=== PATIENT | male | born 1950 | race Caucasian/White ===

== ENCOUNTER 2021-06-05 18:30 | Inpatient (IN) | payer MEDICARE ==
[~2021-06-05] VITALS: Ht 180.3 cm; Wt 147.5 kg
[~2021-06-05 18:30] MED LIST: ALLO100T OR; AMLO-489 OR; ASPI-247 GT; BENA20TA14 OR; FURO20TA3 PO; LEVO-28 PO; LEVO150T10 OR; METO-159 OR; POT10T PO
[2021-06-05 20:28] LABS: Basophils # (auto) 0.1 10 ^3/uL (0-0.2); Basophils % (auto) 0.9 % (0.0-2.0); Eosinophils # (auto) 0.2 10 ^3/uL (0-0.8); Eosinophils % (auto) 1.5 % (0.0-7.0); Hemoglobin 16.2 g/dL (13.5-17.5); Lymphocytes # (auto) 2.3 10 ^3/uL (0.4-5.4); Monocytes # (auto) 1.4 10 ^3/uL (0-1.3); Monocytes % (auto) 11.3 % (0.0-12.0); Neutrophils # (auto) 8.6 10 ^3/uL (1.6-8.6); Neutrophils % (auto) 68.3 % (37.0-80.0); Nucleated Red Blood Cells % 0.1 %; Red Blood Cells 5.57 10^6/uL (4.5-5.90); Red Cell Distribution Width 14.1 % (11.8-14.3); White Blood Cell 12.6 10^3/uL (4.4-10.8)
[2021-06-05 23:40] LABS: INR 1.07 (0.9-1.15)
[2021-06-05 23:45] LABS: Alanine Aminotransferase 23 U/L (16-61); Albumin 2.8 g/dL (3.4-5.0); Anion Gap 9 (5-15); Aspartate Aminotransferase 12 U/L (15-37); BUN/Creatinine Ratio 22.3; Blood Urea Nitrogen 25 mg/dL (7-18); Calcium 8.6 mg/dL (8.5-10.1); Carbon Dioxide 22 mmol/L (21-32); Chloride 107 mmol/L (98-107); GFR African American 84 mL/min; GFR Non-African American 69 mL/min; Glucose 91 mg/dL (74-106); Magnesium 2.8 mg/dL (1.6-2.6); Potassium 3.7 mmol/L (3.5-5.1); Sodium 138 mmol/L (136-145)
[2021-06-05 23:47] LABS: Alkaline Phosphatase 63 U/L (45-117); Bilirubin, Total 0.9 mg/dL (0.2-1.0); Total Protein 7.1 g/dL (6.4-8.2)
[2021-06-06] MEDS ORDERED: ACETAMINOPHEN 325 MG TAB PO PRN
[2021-06-06] MEDS ORDERED: MORPHINE SULFATE INJECTION 2 MG/2 ML SYRG IV PRN
[2021-06-06] MEDS ORDERED: HYDROcodone-ACET 5/325MG TAB PO PRN
[2021-06-06] MEDS ORDERED: LORazepam 0.5 MG TAB PO PRN
[2021-06-06] MEDS ORDERED: VANCOMYCIN 1GM/250ML 250 ML IV ONE
[2021-06-06] MEDS ORDERED: ONDANSETRON HCL 4 MG/2 ML VIAL IV PRN
[2021-06-06] MEDS ORDERED: ALUM & MAG HYDROX-SIMETH LIQ(MAALOX) 30 ML PO PRN
[2021-06-06] MEDS ORDERED: DOCUSATE SOD 100 MG CAP PO PRN
[2021-06-06] MEDS ORDERED: TEMAZEPAM 15 MG CAP PO PRN
[2021-06-06] MEDS ORDERED: VANCOMYCIN PER PHARMACY 0 MG IV SCH
[2021-06-06] MEDS ORDERED: PIPERACILLIN-TAZOB 3.375GM 100 ML IV ONE
[2021-06-06] MEDS: SODIUM CHLORIDE 0.9% 1,000 ML IV SCH ×2 (02:34→16:40)
[2021-06-06 04:00] VITALS: BP 178/74
[2021-06-06 04:15] LABS: Basophils # (auto) 0.1 10 ^3/uL (0-0.2); Basophils % (auto) 0.9 % (0.0-2.0); Eosinophils # (auto) 0.2 10 ^3/uL (0-0.8); Eosinophils % (auto) 2.5 % (0.0-7.0); Hematocrit 43.5 % (41.0-53.0); Hemoglobin 14.8 g/dL (13.5-17.5); Lymphocytes # (auto) 2.5 10 ^3/uL (0.4-5.4); Lymphocytes % (auto) 25.2 % (10.0-50.0); Mean Corpuscular Hemoglobin 29.9 pg (28.0-32.0); Mean Corpuscular Hgb Conc. 34.1 g/dL (32.0-36.0); Mean Corpuscular Volume 87.7 fL (80.0-100.0); Monocytes # (auto) 1.1 10 ^3/uL (0-1.3); Monocytes % (auto) 10.8 % (0.0-12.0); Neutrophils # (auto) 5.9 10 ^3/uL (1.6-8.6); Neutrophils % (auto) 60.6 % (37.0-80.0); Nucleated Red Blood Cells % 0.1 %; Red Blood Cells 4.96 10^6/uL (4.5-5.90); Red Cell Distribution Width 13.9 % (11.8-14.3); White Blood Cell 9.8 10^3/uL (4.4-10.8)
[2021-06-06 04:36] LABS: Calcium 8.5 mg/dL (8.5-10.1); Potassium 3.8 mmol/L (3.5-5.1)
[2021-06-06 04:37] LABS: BUN/Creatinine Ratio 21.9
[2021-06-06 05:00] VITALS: BP 178/74
[2021-06-06] MEDS ORDERED: PIPERACILLIN-TAZOB 3.375GM 100 ML IV SCH (06:00)
[2021-06-06] MEDS: LEVOTHYROXINE SODIUM 50 MCG TAB PO SCH (08:00)
[2021-06-06] MEDS ORDERED: fentaNYL CITRATE 100 MCG/2 ML VL ONE (08:25)
[2021-06-06] MEDS ORDERED: ONDANSETRON HCL 4 MG/2 ML VIAL ONE (08:26)
[2021-06-06] MEDS ORDERED: PROPOFOL 10 MG/ML 20 ML IV ONE (08:26)
[2021-06-06] MEDS ORDERED: SODIUM CHLORIDE LOCK 10 ML ONE (08:26)
[2021-06-06] MEDS ORDERED: MIDAZOLAM HCL 2MG/2ML 2ml VIAL (1mg/ml) ONE (08:26)
[2021-06-06] MEDS ORDERED: KETAMINE HCL 10 ML ONE (08:26)
[2021-06-06] MEDS ORDERED: LIDOCAINE 2% (LOCAL ANESTH.) PF 5ml SDV ONE (08:27)
[2021-06-06] MEDS ORDERED: NEOMYCIN-BACITRACIN-POLYM 15GM TOP OINT TOP ONE (08:31)
[2021-06-06] MEDS ORDERED: ROPIVACAINE 0.5% (5MG/ML) 20ML AMPULE IJ ONE (08:31)
[2021-06-06] MEDS ORDERED: ceFAZolin 1GM/50ML 100 ML IV ONE (08:42)
[2021-06-06] MEDS: ceFAZolin 1GM VL ONE ×2 (08:52→09:43)
[2021-06-06 09:00] VITALS: BP 117/102
[2021-06-06] MEDS ORDERED: HYDROmorphone HCL 2 MG/ML VL IV PRN (09:15)
[2021-06-06] MEDS ORDERED: METOCLOPRAMIDE HCL 5MG/ml INJ 2ml VIAL IV PRN (09:15)
[2021-06-06] MEDS ORDERED: MORPHINE SULFATE 4 MG/ML SYR/VIAL IV PRN (09:15)
[2021-06-06] MEDS ORDERED: SILVER SULFADIAZINE 1 % TOPICAL CREAM 50GM TOP ONE (09:39)
[2021-06-06] MEDS: METOPROLOL TARTRATE 50 MG TAB PO SCH ×2 (10:00→22:26)
[2021-06-06] MEDS ORDERED: BENAZEPRIL HCL 10 MG TAB PO ONE (12:45)
[2021-06-06 13:00] VITALS: BP 161/80
[2021-06-06] MEDS: amLODIPine BESYLATE 5 MG TAB PO SCH (13:01)
[2021-06-06] MEDS: FUROSEMIDE 20 MG TAB PO SCH (13:02)
[2021-06-06] MEDS: VANCOMYCIN 1GM/250ML 250 ML IV SCH (14:18)
[2021-06-06] MEDS: PIPERACILLIN-TAZOB 3.375GM 100 ML IV SCH ×2 (15:30→22:27)
[2021-06-06 17:00] VITALS: BP 153/74
[2021-06-06 22:00] VITALS: BP 126/89
[2021-06-07] MEDS: VANCOMYCIN 1GM/250ML 250 ML IV SCH ×4 (03:53→18:43)
[2021-06-07 05:00] VITALS: BP 155/93
[2021-06-07 05:58] LABS: Basophils # (auto) 0.3 10 ^3/uL (0-0.2); Basophils % (auto) 3.4 % (0.0-2.0); Eosinophils # (auto) 0.3 10 ^3/uL (0-0.8); Hematocrit 46.3 % (41.0-53.0); Hemoglobin 15.7 g/dL (13.5-17.5); Lymphocytes # (auto) 1.1 10 ^3/uL (0.4-5.4); Lymphocytes % (auto) 13.5 % (10.0-50.0); Mean Corpuscular Hemoglobin 29.9 pg (28.0-32.0); Mean Corpuscular Hgb Conc. 33.9 g/dL (32.0-36.0); Mean Corpuscular Volume 88.2 fL (80.0-100.0); Monocytes # (auto) 0.6 10 ^3/uL (0-1.3); Monocytes % (auto) 7.4 % (0.0-12.0); Neutrophils # (auto) 5.8 10 ^3/uL (1.6-8.6); Neutrophils % (auto) 71.7 % (37.0-80.0); Nucleated Red Blood Cells % 0.1 %; Red Blood Cells 5.25 10^6/uL (4.5-5.90); Red Cell Distribution Width 13.8 % (11.8-14.3); White Blood Cell 8.1 10^3/uL (4.4-10.8)
[2021-06-07 06:19] LABS: Potassium 3.8 mmol/L (3.5-5.1)
[2021-06-07 06:23] LABS: BUN/Creatinine Ratio 19.4
[2021-06-07] MEDS: PIPERACILLIN-TAZOB 3.375GM 100 ML IV SCH ×3 (07:03→22:05)
[2021-06-07] MEDS: LEVOTHYROXINE SODIUM 50 MCG TAB PO SCH (08:17)
[2021-06-07 09:00] VITALS: BP 153/88
[2021-06-07] MEDS: FUROSEMIDE 20 MG TAB PO SCH (10:03)
[2021-06-07] MEDS: BENAZEPRIL HCL 10 MG TAB PO SCH (10:03)
[2021-06-07] MEDS: POTASSIUM CHL 10 Meq TABLET PO SCH (10:03)
[2021-06-07] MEDS: amLODIPine BESYLATE 5 MG TAB PO SCH (10:03)
[2021-06-07 13:00] VITALS: BP 160/91
[2021-06-07] MEDS: hydrALAZINE HCL 20 MG/ML VL IV PRN (14:28)
[2021-06-07 17:00] VITALS: BP 160/79
[2021-06-07] MEDS: BENAZEPRIL HCL 10 MG TAB PO ONE ×2 (17:27→17:47)
[2021-06-07 22:00] VITALS: BP 143/63
[2021-06-07] MEDS: METOPROLOL TARTRATE 25 MG TAB PO SCH (22:05)
[2021-06-08 05:00] VITALS: BP 179/80
[2021-06-08] MEDS: hydrALAZINE HCL 20 MG/ML VL IV PRN ×2 (05:27→12:54)
[2021-06-08 05:58] LABS: Urine WBC None Seen /hpf (0 - 3)
[2021-06-08 06:17] VITALS: BP 125/74
[2021-06-08 06:35] LABS: Urine Bacteria NONE SEEN /hpf (None Seen); Urine Blood Negative /uL (Negative); Urine Specific Gravity 1.004 (1.001-1.035)
[2021-06-08] MEDS: PIPERACILLIN-TAZOB 3.375GM 100 ML IV SCH ×2 (06:38→15:00)
[2021-06-08] MEDS: LEVOTHYROXINE SODIUM 50 MCG TAB PO SCH (08:11)
[2021-06-08] MEDS: VANCOMYCIN 1GM/250ML 250 ML IV SCH (08:11)
[2021-06-08] MEDS: BENAZEPRIL HCL 10 MG TAB PO SCH (08:13)
[2021-06-08] MEDS: FUROSEMIDE 20 MG TAB PO SCH (08:14)
[2021-06-08] MEDS: POTASSIUM CHL 10 Meq TABLET PO SCH (08:14)
[2021-06-08] MEDS: METOPROLOL TARTRATE 25 MG TAB PO SCH (08:14)
[2021-06-08 09:00] VITALS: BP 175/105
[2021-06-08] MEDS ORDERED: amLODIPine BESYLATE 5 MG TAB PO SCH (10:00)
[2021-06-08] MEDS ORDERED: SILVER SULFADIAZINE 1 % TOPICAL CREAM 50GM TOP SCH (10:00)
[2021-06-08 13:00] VITALS: BP 162/94
== END 2021-06-08 17:00 | disposition home or self-care (01) | DRG 854 ==
LOC: ER 18:31 → OVERFLOW 06-06 → CENTRAL 06-06 04:30
PROVIDERS: ADMIT Hospitalist; ATTEND Internal Medicine
PROC: 0JBR0ZZ Excision of Left Foot Subcutaneous Tissue and Fascia, Open Approach (ICD-10-PCS; principal; 2021-06-06 11:30)
DX: A41.01 Sepsis due to Methicillin susceptible Staphylococcus aureus (principal); L03.116 Cellulitis of left lower limb; Z68.41 Body mass index [BMI] 40.0-44.9, adult; M10.9 Gout, unspecified; I48.91 Unspecified atrial fibrillation; I10 Essential (primary) hypertension; E03.9 Hypothyroidism, unspecified; G62.9 Polyneuropathy, unspecified; L97.529 Non-pressure chronic ulcer of other part of left foot with unspecified severity; E66.01 Morbid (severe) obesity due to excess calories; Z20.822 Contact with and (suspected) exposure to COVID-19; Z89.431 Acquired absence of right foot
CPT/HCPCS: 36415; 71045; 80048; 80053; 80061; 80202; 81001; 83036; 83605; 83735; 84443; 85025; 85610; 85652; 87040; 87070; 87075; 87077; 87186; 87205; 87426; 93971; 96365; 96367; G0378; J0690; J2001; J2250; J2405; J2543; J2704

== ENCOUNTER → 2022-01-23 | Day surgery (SDC) | payer MEDICARE ==
[2022-01-21 11:10] LABS: Basophils # (auto) 0.1 10 ^3/uL (0-0.2); Basophils % (auto) 1.3 % (0.0-2.0); Eosinophils # (auto) 0.2 10 ^3/uL (0-0.8); Eosinophils % (auto) 1.7 % (0.0-7.0); Hematocrit 50.8 % (41.0-53.0); Hemoglobin 16.9 g/dL (13.5-17.5); Lymphocytes # (auto) 2.3 10 ^3/uL (0.4-5.4); Lymphocytes % (auto) 23.9 % (10.0-50.0); Mean Corpuscular Hemoglobin 28.9 pg (28.0-32.0); Mean Corpuscular Hgb Conc. 33.3 g/dL (32.0-36.0); Mean Corpuscular Volume 86.6 fL (80.0-100.0); Monocytes # (auto) 0.9 10 ^3/uL (0-1.3); Monocytes % (auto) 9.6 % (0.0-12.0); Neutrophils % (auto) 63.5 % (37.0-80.0); Nucleated Red Blood Cells % 1.6 %; Red Blood Cells 5.87 10^6/uL (4.5-5.90); White Blood Cell 9.5 10^3/uL (4.4-10.8)
[2022-01-21 11:37] LABS: INR 1.05 (0.9-1.15); Partial Thromboplastin Time 26.6 sec (23.6-33.0)
[2022-01-21 12:03] LABS: Potassium 4.5 mmol/L (3.5-5.1)
[2022-01-21 12:07] LABS: Urine Bacteria NONE SEEN /hpf (None Seen); Urine Blood Negative /uL (Negative); Urine Mucus FEW (None Seen); Urine Specific Gravity 1.016 (1.001-1.035); Urine WBC 1 /hpf (0 - 3)
[2022-01-21 12:09] LABS: Albumin 3.5 g/dL (3.4-5.0); BUN/Creatinine Ratio 22.1; Calcium 8.9 mg/dL (8.5-10.1)
[2022-01-21 12:11] LABS: Bilirubin, Total 0.9 mg/dL (0.2-1.0); Total Protein 7.3 g/dL (6.4-8.2)
[~2022-01-23] VITALS: Ht 180.3 cm; Wt 145.1 kg
[~2022-01-23] MED LIST changes: -AMLO-489 OR; -ASPI-247 GT; +ATOR10TA PO; -BENA20TA14 OR; +BENA40TA8 PO; +DexAMETHasone SOD PHOS 10MG/1ML VIAL INJ ONE; +HYDROmorphone HCL 2 MG/ML VL IV PRN; +LABETALOL HCL 5 MG/ML 4ML SYRINGE IV PRN; -LEVO-28 PO; -LEVO150T10 OR; +LEVO175T62 PO; +MEPERIDINE HCL (50 MG/ML) 1 ML VIAL ONE; +MIDAZOLAM HCL 2MG/2ML 2ml VIAL (1mg/ml) IV PRN; +MIDAZOLAM HCL 2MG/2ML 2ml VIAL (1mg/ml) ONE; +MORPHINE SULFATE 4 MG/ML SYR/VIAL IV PRN; +NEOMYCIN-BACITRACIN-POLYM 15GM TOP OINT TOP ONE; +ONDANSETRON HCL 4 MG/2 ML VIAL IV PRN; +PROPOFOL 10 MG/ML 20 ML IV ONE; +ROPIVACAINE 0.5% (5MG/ML) 20ML AMPULE IJ ONE; +SUCCINYLCHOLINE CHLORIDE 20 MG/ML 10ML VIAL IV ONE; +ceFAZolin 1GM VL ONE; +ceFAZolin 1GM/50ML 150 ML IV ONE; +ePHEDrine SULFATE 50 MG/ML AMP IV PRN; +fentaNYL CITRATE 100 MCG/2 ML VL ONE
[2022-01-23 09:27] VITALS: BP 151/77
== END | disposition home or self-care (01) ==
LOC: SUR 06:12
PROVIDERS: ATTEND Podiatrist Foot & Ankle Surgery
DX: E11.621 Type 2 diabetes mellitus with foot ulcer (principal); L90.5 Scar conditions and fibrosis of skin; M19.071 Primary osteoarthritis, right ankle and foot; M20.5X1 Other deformities of toe(s) (acquired), right foot; L91.0 Hypertrophic scar; I10 Essential (primary) hypertension; E78.5 Hyperlipidemia, unspecified; E11.40 Type 2 diabetes mellitus with diabetic neuropathy, unspecified; M10.9 Gout, unspecified; I48.91 Unspecified atrial fibrillation; G47.33 Obstructive sleep apnea (adult) (pediatric); E66.01 Morbid (severe) obesity due to excess calories; E03.9 Hypothyroidism, unspecified; Z82.49 Family history of ischemic heart disease and other diseases of the circulatory system; Z83.42 Family history of familial hypercholesterolemia; Z80.1 Family history of malignant neoplasm of trachea, bronchus and lung; Z80.0 Family history of malignant neoplasm of digestive organs; Z20.822 Contact with and (suspected) exposure to COVID-19; Z98.890 Other specified postprocedural states; Z79.899 Other long term (current) drug therapy; Z68.41 Body mass index [BMI] 40.0-44.9, adult
CPT/HCPCS: 14040; 28232; 28292; 36415; 80053; 81001; 85025; 85610; 85730; 88305; 88311; J0330; J0690; J1100; J2175; J2250; J2704; J2795; J3010; U0003

== ENCOUNTER 2023-03-19 06:22 | Day surgery (SDC) | payer MEDICARE ==
[2023-03-13 13:34] LABS: Basophils # (auto) 0 10 ^3/uL (0-0.2); Basophils % (auto) 0.4 % (0.0-2.0); Eosinophils # (auto) 0.1 10 ^3/uL (0-0.8); Eosinophils % (auto) 1.4 % (0.0-7.0); Hemoglobin 17.9 g/dL (13.5-17.5); Lymphocytes # (auto) 2.2 10 ^3/uL (0.4-5.4); Lymphocytes % (auto) 19.9 % (10.0-50.0); Mean Corpuscular Hemoglobin 29.1 pg (28.0-32.0); Mean Corpuscular Hgb Conc. 33.2 g/dL (32.0-36.0); Mean Corpuscular Volume 87.8 fL (80.0-100.0); Monocytes % (auto) 8.9 % (0.0-12.0); Neutrophils # (auto) 7.6 10 ^3/uL (1.6-8.6); Neutrophils % (auto) 69.4 % (37.0-80.0); Nucleated Red Blood Cells % 0.1 %; Red Blood Cells 6.15 10^6/uL (4.5-5.90); Red Cell Distribution Width 14.5 % (11.8-14.3); White Blood Cell 10.9 10^3/uL (4.4-10.8)
[2023-03-13 14:10] LABS: Albumin 3.6 g/dL (3.4-5.0); Calcium 8.8 mg/dL (8.5-10.1); Potassium 4.1 mmol/L (3.5-5.1)
[2023-03-13 14:14] LABS: BUN/Creatinine Ratio 18.1 (10.0-20.0); Bilirubin, Total 1.6 mg/dL (0.2-1.0); Total Protein 7.5 g/dL (6.4-8.2)
[2023-03-14 05:56] LABS: Urine Bacteria NONE SEEN /hpf (None Seen); Urine Blood Negative /uL (Negative); Urine Hyaline Cast MANY /lpf (0 - 2); Urine Mucus FEW (None Seen); Urine Specific Gravity 1.018 (1.001-1.035); Urine WBC 2 /hpf (0 - 3)
[~2023-03-19] VITALS: Ht 180.3 cm; Wt 145.1 kg
[~2023-03-19 06:22] MED LIST changes: +AMLO1TAB23 PO; +BENA40TA70 PO; -BENA40TA8 PO; -DexAMETHasone SOD PHOS 10MG/1ML VIAL INJ ONE; -HYDROmorphone HCL 2 MG/ML VL IV PRN; -LABETALOL HCL 5 MG/ML 4ML SYRINGE IV PRN; -MEPERIDINE HCL (50 MG/ML) 1 ML VIAL ONE; -MIDAZOLAM HCL 2MG/2ML 2ml VIAL (1mg/ml) IV PRN; -MIDAZOLAM HCL 2MG/2ML 2ml VIAL (1mg/ml) ONE; -MORPHINE SULFATE 4 MG/ML SYR/VIAL IV PRN; -NEOMYCIN-BACITRACIN-POLYM 15GM TOP OINT TOP ONE; -ONDANSETRON HCL 4 MG/2 ML VIAL IV PRN; -PROPOFOL 10 MG/ML 20 ML IV ONE; -ROPIVACAINE 0.5% (5MG/ML) 20ML AMPULE IJ ONE; -SUCCINYLCHOLINE CHLORIDE 20 MG/ML 10ML VIAL IV ONE; +SULF1TAB75 PO; -ceFAZolin 1GM VL ONE; -ceFAZolin 1GM/50ML 150 ML IV ONE; -ePHEDrine SULFATE 50 MG/ML AMP IV PRN; -fentaNYL CITRATE 100 MCG/2 ML VL ONE
[2023-03-19] MEDS ORDERED: ROPIVACAINE 0.5% (5MG/ML) 20ML AMPULE IJ ONE (06:46)
[2023-03-19] MEDS ORDERED: ceFAZolin 1GM/50ML 100 ML IV ONE (07:00)
[2023-03-19] MEDS ORDERED: fentaNYL CITRATE 100 MCG/2 ML VL ONE (07:05)
[2023-03-19] MEDS ORDERED: SODIUM CHLORIDE LOCK 10 ML ONE (07:05)
[2023-03-19] MEDS ORDERED: PROPOFOL 10 MG/ML 20 ML IV ONE (07:05)
[2023-03-19] MEDS ORDERED: MIDAZOLAM HCL 2MG/2ML 2ml VIAL (1mg/ml) ONE (07:05)
[2023-03-19] MEDS ORDERED: ONDANSETRON HCL 4 MG/2 ML VIAL ONE (07:05)
[2023-03-19] MEDS ORDERED: MORPHINE SULFATE INJ 2 MG/ml SYRG IV PRN (07:30)
[2023-03-19] MEDS ORDERED: HYDROmorphone HCL 2 MG/ML VL/or syr IV PRN ×2 (07:30)
[2023-03-19] MEDS ORDERED: METOCLOPRAMIDE HCL 5MG/ml INJ 2ml VIAL IV PRN (07:30)
[2023-03-19] MEDS ORDERED: BACITRACIN TOP OINT 1 UD PKG TOP ONE (08:01)
[2023-03-19 08:58] VITALS: BP 120/80
== END 2023-03-19 09:03 | disposition home or self-care (01) ==
LOC: SUR 06:22
PROVIDERS: ATTEND Podiatrist Foot & Ankle Surgery
DX: M21.962 Unspecified acquired deformity of left lower leg (principal); L89.893 Pressure ulcer of other site, stage 3; M79.672 Pain in left foot; E11.8 Type 2 diabetes mellitus with unspecified complications; M62.472 Contracture of muscle, left ankle and foot; M89.9 Disorder of bone, unspecified
CPT/HCPCS: 28124; 28232; 36415; 80053; 81001; 85025; 85610; 85730; 88305; 88311; J0690; J2250; J2405; J2704; J2795; J3010

== ENCOUNTER 2023-05-20 18:51 | Inpatient (IN) | payer MEDICARE ==
[~2023-05-20] VITALS: Ht 180.3 cm; Wt 154.6 kg
[2023-05-20] MEDS ORDERED: VANCOMYCIN 1GM/250ML 250 ML IV ONE (20:15)
[2023-05-20 20:23] LABS: Basophils # (auto) 0.2 10 ^3/uL (0-0.2); Basophils % (auto) 1.4 % (0.0-2.0); Eosinophils # (auto) 0.1 10 ^3/uL (0-0.8); Hematocrit 50.3 % (41.0-53.0); Hemoglobin 16.6 g/dL (13.5-17.5); Lymphocytes % (auto) 14.5 % (10.0-50.0); Mean Corpuscular Hemoglobin 29.3 pg (28.0-32.0); Mean Corpuscular Hgb Conc. 33.1 g/dL (32.0-36.0); Mean Corpuscular Volume 88.6 fL (80.0-100.0); Monocytes # (auto) 1.2 10 ^3/uL (0-1.3); Monocytes % (auto) 8.6 % (0.0-12.0); Neutrophils # (auto) 10.4 10 ^3/uL (1.6-8.6); Neutrophils % (auto) 74.5 % (37.0-80.0); Nucleated Red Blood Cells % 0.1 %; Red Blood Cells 5.67 10^6/uL (4.5-5.90); Red Cell Distribution Width 15.3 % (11.8-14.3); White Blood Cell 13.9 10^3/uL (4.4-10.8)
[2023-05-20 20:40] LABS: Albumin 3.4 g/dL (3.4-5.0); Potassium 3.9 mmol/L (3.5-5.1)
[2023-05-20 20:43] LABS: BUN/Creatinine Ratio 21.6 (10.0-20.0); Bilirubin, Total 0.8 mg/dL (0.2-1.0); Total Protein 7.4 g/dL (6.4-8.2)
[2023-05-20 21:51] LABS: Erythrocyte Sedimentation Rate 13 mm/hr (0-20)
[2023-05-20] MEDS ORDERED: HYDROcodone-ACET 5/325MG TAB PO PRN (23:15)
[2023-05-20] MEDS ORDERED: MORPHINE SULFATE INJ 2 MG/ml SYRG IV PRN (23:15)
[2023-05-20] MEDS ORDERED: ACETAMINOPHEN 325 MG TAB PO PRN (23:15)
[2023-05-20] MEDS: ceFAZolin 1GM/50ML 50 ML IV SCH (23:38)
[2023-05-21] VITALS (7 sets, daily range): BP systolic 130–150; BP diastolic 70–92; PULSE 62–95; RESP 16–22; TEMP 97.7–98.2; O2SAT 0–97
[2023-05-21] MEDS: ceFAZolin 1GM/50ML 50 ML IV SCH ×2 (06:11→15:18)
[2023-05-21] MEDS: LEVOTHYROXINE SODIUM 50 MCG TAB PO SCH (06:14)
[2023-05-21 06:45] LABS: Albumin 3.2 g/dL (3.4-5.0); Calcium 8.6 mg/dL (8.5-10.1); Potassium 3.3 mmol/L (3.5-5.1)
[2023-05-21 06:49] LABS: BUN/Creatinine Ratio 29.2 (10.0-20.0); Total Protein 6.7 g/dL (6.4-8.2)
[2023-05-21 06:56] LABS: INR 1.04 (0.9-1.15); Partial Thromboplastin Time 27.2 SEC (24.5-34.5); Prothrombin Time 10.9 sec (9.3-11.8)
[2023-05-21 06:58] LABS: Basophils # (auto) 0.1 10 ^3/uL (0-0.2); Basophils % (auto) 0.8 % (0.0-2.0); Eosinophils # (auto) 0.1 10 ^3/uL (0-0.8); Eosinophils % (auto) 1.1 % (0.0-7.0); Hematocrit 47.3 % (41.0-53.0); Hemoglobin 15.7 g/dL (13.5-17.5); Lymphocytes # (auto) 1.9 10 ^3/uL (0.4-5.4); Lymphocytes % (auto) 16.6 % (10.0-50.0); Mean Corpuscular Hemoglobin 29.2 pg (28.0-32.0); Mean Corpuscular Hgb Conc. 33.1 g/dL (32.0-36.0); Mean Corpuscular Volume 88.3 fL (80.0-100.0); Monocytes # (auto) 1.2 10 ^3/uL (0-1.3); Monocytes % (auto) 10.5 % (0.0-12.0); Red Blood Cells 5.36 10^6/uL (4.5-5.90); Red Cell Distribution Width 14.8 % (11.8-14.3); White Blood Cell 11.3 10^3/uL (4.4-10.8)
[2023-05-21] MEDS: BENAZEPRIL HCL 10 MG TAB PO SCH (10:00)
[2023-05-21] MEDS ORDERED: PANTOPRAZOLE 40 MG TAB PO SCH (10:00)
[2023-05-21] MEDS ORDERED: POTASSIUM CHL 10 Meq TABLET PO SCH (10:00)
[2023-05-21] MEDS: amLODIPine BESYLATE 5 MG TAB PO SCH (10:00)
[2023-05-21] MEDS: METOPROLOL TARTRATE 50 MG TAB PO SCH ×2 (10:00→21:58)
[2023-05-21] MEDS ORDERED: FUROSEMIDE 20 MG TAB PO SCH (10:00)
[2023-05-21] MEDS ORDERED: GADOTERATE MEG 10 MMOL/20ml INJ (0.5MMOL/ml) IV ONE (10:41)
[2023-05-21] MEDS ORDERED: POTASSIUM CHL 20 Meq TABLET PO ONE ×2 (10:45→14:15)
[2023-05-21 11:06] LABS: Cholesterol 117 mg/dL (< 200); Triglycerides 67 mg/dL (< 150)
[2023-05-21 11:08] LABS: HDL Cholesterol 42 mg/dL (40-59); LDL Cholesterol 62 mg/dL (< 100)
[2023-05-21] MEDS ORDERED: PROPOFOL 10 MG/ML 20 ML IV ONE (12:02)
[2023-05-21] MEDS ORDERED: KETOROLAC TROMETH 30 MG/ML 1ML VIAL ONE (12:03)
[2023-05-21] MEDS ORDERED: ONDANSETRON HCL 4 MG/2 ML VIAL ONE (12:03)
[2023-05-21] MEDS ORDERED: LIDOCAINE 2% (LOCAL ANESTH.) PF 5ml SDV ONE (12:03)
[2023-05-21] MEDS ORDERED: DexAMETHasone SOD PHOS 10MG/1ML VIAL INJ ONE (12:03)
[2023-05-21] MEDS ORDERED: GLYCOPYRROLATE 0.2 MG/ML 1ML VIAL ONE (12:03)
[2023-05-21] MEDS ORDERED: ceFAZolin 1GM/50ML 100 ML IV ONE (13:12)
[2023-05-21] MEDS ORDERED: ceFAZolin 1GM VL ONE ×2 (13:12→13:13)
[2023-05-21] MEDS ORDERED: VANCOMYCIN PER PHARMACY 0 MG IV SCH (16:15)
[2023-05-21] MEDS ORDERED: KETAMINE 50mg/ML 10ml Vial (500mg/10ml) IV ONE (16:31)
[2023-05-21] MEDS: VANCOMYCIN 1GM/250ML 250 ML IV SCH (18:20)
[2023-05-21] MEDS ORDERED: LIDOCAINE 1% (LOCAL ANESTH.) PF 5ml SDV ID ONE (19:30)
[2023-05-21] MEDS: CEFEPIME 1GM/ 50ML 50 ML IV SCH (21:57)
[2023-05-21] MEDS: ATORVASTATIN 20 MG TAB PO SCH (21:58)
[2023-05-21] MEDS: ALLOPURINOL 100 MG TAB PO SCH (21:58)
[2023-05-21] MEDS: SODIUM CHLOR 0.9% PF (SALINE LOCK) 10ML VIAL/SYR IV SCH (22:01)
[2023-05-22 05:00] VITALS: BP 120/72; PULSE 75; RESP 20; TEMP 98.5; O2SAT 92
[2023-05-22] MEDS: CEFEPIME 1GM/ 50ML 50 ML IV SCH ×3 (05:32→22:18)
[2023-05-22] MEDS: VANCOMYCIN 1GM/250ML 250 ML IV SCH ×2 (06:02→17:46)
[2023-05-22] MEDS: LEVOTHYROXINE SODIUM 50 MCG TAB PO SCH (06:07)
[2023-05-22 06:59] LABS: Basophils # (auto) 0 10 ^3/uL (0-0.2); Basophils % (auto) 0.2 % (0.0-2.0); Eosinophils # (auto) 0 10 ^3/uL (0-0.8); Hematocrit 47.6 % (41.0-53.0); Hemoglobin 15.6 g/dL (13.5-17.5); Lymphocytes # (auto) 0.9 10 ^3/uL (0.4-5.4); Lymphocytes % (auto) 8.4 % (10.0-50.0); Mean Corpuscular Hgb Conc. 32.7 g/dL (32.0-36.0); Mean Corpuscular Volume 88.6 fL (80.0-100.0); Monocytes # (auto) 0.3 10 ^3/uL (0-1.3); Monocytes % (auto) 2.5 % (0.0-12.0); Neutrophils % (auto) 88.9 % (37.0-80.0); Nucleated Red Blood Cells % 0.1 %; Red Blood Cells 5.37 10^6/uL (4.5-5.90); Red Cell Distribution Width 14.5 % (11.8-14.3); White Blood Cell 10.2 10^3/uL (4.4-10.8)
[2023-05-22 08:00] VITALS: BP 147/72; PULSE 74; RESP 20; TEMP 98.2; O2SAT 94
[2023-05-22 09:33] LABS: Calcium 8.6 mg/dL (8.5-10.1)
[2023-05-22 09:38] LABS: BUN/Creatinine Ratio 23.6 (10.0-20.0); Bilirubin, Total 0.7 mg/dL (0.2-1.0); Total Protein 6.6 g/dL (6.4-8.2)
[2023-05-22] MEDS: METOPROLOL TARTRATE 50 MG TAB PO SCH ×2 (10:21→22:19)
[2023-05-22] MEDS: BENAZEPRIL HCL 10 MG TAB PO SCH (10:21)
[2023-05-22] MEDS: amLODIPine BESYLATE 5 MG TAB PO SCH (10:22)
[2023-05-22] MEDS: SODIUM CHLOR 0.9% PF (SALINE LOCK) 10ML VIAL/SYR IV SCH ×2 (10:22→22:18)
[2023-05-22 12:00] VITALS: BP 138/72; PULSE 72; RESP 21; TEMP 98.4; O2SAT 91
[2023-05-22 16:00] VITALS: BP 147/61; PULSE 56; RESP 21; TEMP 98.6; O2SAT 95
[2023-05-22 20:00] VITALS: BP 152/96; PULSE 80; RESP 18; TEMP 98.4; O2SAT 95
[2023-05-22 22:00] VITALS: BP 152/96; PULSE 80; RESP 18; TEMP 98.4; O2SAT 95
[2023-05-22] MEDS: ALLOPURINOL 100 MG TAB PO SCH (22:18)
[2023-05-22] MEDS: ATORVASTATIN 20 MG TAB PO SCH (22:18)
[2023-05-23 05:00] VITALS: BP 141/82; PULSE 52; RESP 18; TEMP 97.6; O2SAT 94
[2023-05-23] MEDS: CEFEPIME 1GM/ 50ML 50 ML IV SCH (06:10)
[2023-05-23 06:37] LABS: Basophils # (auto) 0.3 10 ^3/uL (0-0.2); Basophils % (auto) 2.7 % (0.0-2.0); Eosinophils # (auto) 0.1 10 ^3/uL (0-0.8); Eosinophils % (auto) 0.5 % (0.0-7.0); Hematocrit 45.4 % (41.0-53.0); Hemoglobin 15.1 g/dL (13.5-17.5); Lymphocytes # (auto) 1.2 10 ^3/uL (0.4-5.4); Lymphocytes % (auto) 10.8 % (10.0-50.0); Mean Corpuscular Hemoglobin 29.5 pg (28.0-32.0); Mean Corpuscular Hgb Conc. 33.3 g/dL (32.0-36.0); Mean Corpuscular Volume 88.6 fL (80.0-100.0); Monocytes # (auto) 0.9 10 ^3/uL (0-1.3); Monocytes % (auto) 8.5 % (0.0-12.0); Neutrophils # (auto) 8.5 10 ^3/uL (1.6-8.6); Neutrophils % (auto) 77.5 % (37.0-80.0); Nucleated Red Blood Cells % 0.2 %; Red Blood Cells 5.12 10^6/uL (4.5-5.90); Red Cell Distribution Width 15.1 % (11.8-14.3); White Blood Cell 10.9 10^3/uL (4.4-10.8)
[2023-05-23] MEDS: LEVOTHYROXINE SODIUM 50 MCG TAB PO SCH (06:40)
[2023-05-23 07:00] LABS: BUN/Creatinine Ratio 29.2 (10.0-20.0); Calcium 8.2 mg/dL (8.5-10.1); Potassium 3.9 mmol/L (3.5-5.1)
[2023-05-23 08:00] VITALS: BP_SYST 123; BP_SYST 157; BP_DIAS 62; BP_DIAS 77; PULSE 66; PULSE 85; RESP 21; RESP 22; TEMP 97.6; TEMP 98.3; O2SAT 90; O2SAT 95
[2023-05-23] MEDS: amLODIPine BESYLATE 5 MG TAB PO SCH (09:54)
[2023-05-23] MEDS: METOPROLOL TARTRATE 50 MG TAB PO SCH (09:54)
[2023-05-23] MEDS: BENAZEPRIL HCL 10 MG TAB PO SCH (09:55)
[2023-05-23] MEDS ORDERED: VANCOMYCIN 1GM/250ML 250 ML IV SCH ×2 (11:30→12:00)
[2023-05-23] MEDS: SODIUM CHLOR 0.9% PF (SALINE LOCK) 10ML VIAL/SYR IV SCH (11:31)
[2023-05-23 12:00] VITALS: BP 131/77; PULSE 50; RESP 21; TEMP 98.2; O2SAT 91
[2023-05-23 16:00] VITALS: BP 157/77; PULSE 69; RESP 21; TEMP 98.5; O2SAT 97
[2023-05-24] MEDS ORDERED: VANCOMYCIN 1GM/250ML 250 ML IV SCH (10:00)
== END 2023-05-23 18:13 | disposition home health service (06) | DRG 502 ==
LOC: ER 18:51 → OVERFLOW 23:07 → WEST WING 05-21 10:04
PROVIDERS: ADMIT Internal Medicine; ATTEND Internal Medicine
PROC: 02HV33Z Insertion of Infusion Device into Superior Vena Cava, Percutaneous Approach (ICD-10-PCS; 2023-05-21)
PROC: B548ZZA Ultrasonography of Superior Vena Cava, Guidance (ICD-10-PCS; 2023-05-21)
PROC: 0LBW0ZZ Excision of Left Foot Tendon, Open Approach (ICD-10-PCS; principal; 2023-05-21 13:20)
DX: M86.8X7 Other osteomyelitis, ankle and foot (principal); D72.829 Elevated white blood cell count, unspecified; I48.91 Unspecified atrial fibrillation; I10 Essential (primary) hypertension; E03.9 Hypothyroidism, unspecified; L97.529 Non-pressure chronic ulcer of other part of left foot with unspecified severity; E87.6 Hypokalemia; G47.30 Sleep apnea, unspecified
CPT/HCPCS: 36415; 36569; 71045; 73700; 73720; 80048; 80053; 80061; 80202; 83036; 83605; 83735; 84443; 85025; 85610; 85652; 85730; 87040; 87070; 87075; 87077; 87186; 87205; 93005; G0378; J0690; J1100; J1885; J2001; J2405; J2704

== ENCOUNTER 2023-07-07 11:56 | Inpatient (IN) | payer MEDICARE ==
[~2023-07-07] VITALS: Ht 180.3 cm; Wt 147.5 kg
[2023-07-07 14:13] LABS: Hemoglobin 16.9 g/dL (13.5-17.5); Mean Corpuscular Hemoglobin 28.7 pg (28.0-32.0); Mean Corpuscular Hgb Conc. 32.4 g/dL (32.0-36.0); Mean Corpuscular Volume 88.3 fL (80.0-100.0); Red Blood Cells 5.88 10^6/uL (4.5-5.90); Red Cell Distribution Width 14.4 % (11.8-14.3); White Blood Cell 13.6 10^3/uL (4.4-10.8)
[2023-07-07 14:18] LABS: Band Neutrophils % (manual) 0; Basophils % (manual) 0 (0.0-2.0); Blast Cells 0; Metamyelocytes % 0; Myelocytes % 0; Promyelocytes % 0; Reactive Lymphocytes 0
[2023-07-07 14:34] LABS: Alanine Aminotransferase 24 U/L (7-40); Albumin 4.4 g/dL (3.2-4.8); Alkaline Phosphatase 75 U/L (46-116); Anion Gap 7.5 (5-15); Aspartate Aminotransferase 14 U/L (13-40); BUN/Creatinine Ratio 18.4 (10.0-20.0); Blood Urea Nitrogen 18 mg/dL (9-23); Calcium 9.5 mg/dL (8.5-10.1); Carbon Dioxide 26.5 mmol/L (20-30); Chloride 106 mmol/L (98-107); Glucose 109 mg/dL (74-106); Potassium 4.8 mmol/L (3.5-5.1); Sodium 140 mmol/L (136-145)
[2023-07-07 14:35] LABS: Bilirubin, Total 1.2 mg/dL (0.2-1.0); Total Protein 7.1 g/dL (5.7-8.2)
[2023-07-07 14:56] LABS: Eosinophils % (manual) 2 (0-7); Lymphocytes % (manual) 18 (10.0-50.0); Monocytes % (manual) 8 (0-12); Platelet Estimate Adequate
[2023-07-07] MEDS ORDERED: PIPERACILLIN-TAZOB 3.375GM 100 ML IV ONE (15:30)
[2023-07-07] MEDS ORDERED: DOCUSATE SOD 100 MG CAP PO PRN (17:45)
[2023-07-07] MEDS ORDERED: ACETAMINOPHEN 325 MG TAB PO PRN (17:45)
[2023-07-07] MEDS ORDERED: NITROGLYCERIN 0.4 MG SL TAB SL PRN (17:45)
[2023-07-07] MEDS ORDERED: MORPHINE SULFATE INJ 2 MG/ml SYRG IV PRN (17:45)
[2023-07-07] MEDS ORDERED: VANCOMYCIN PER PHARMACY 0 MG IV SCH (18:00)
[2023-07-07] MEDS: ENOXAPARIN SOD 100 MG/1 ML SYRINGE SC SCH (18:03)
[2023-07-07] MEDS ORDERED: PANTOPRAZOLE 40 MG/10 ML VIAL INJ IV ONE (18:15)
[2023-07-07] MEDS ORDERED: VANCOMYCIN 1GM/250ML 250 ML IV ONE (18:28)
[2023-07-07 18:47] LABS: INR 1.05 (0.9-1.15); Partial Thromboplastin Time 27.1 SEC (24.5-34.5)
[2023-07-07] MEDS ORDERED: VANCOMYCIN 500 MG in D5W 5% 100 ML IV ONE (19:30)
[2023-07-07 19:45] VITALS: PULSE 62; RESP 14; O2SAT 95
[2023-07-07] MEDS: ALLOPURINOL 100 MG TAB PO SCH (21:44)
[2023-07-07] MEDS: METOPROLOL TARTRATE 50 MG TAB PO SCH (21:44)
[2023-07-08 00:07] LABS: Urine Bacteria NONE SEEN /hpf (None Seen); Urine Blood Negative /uL (Negative); Urine Clarity HAZY (Clear); Urine Color Yellow (Yellow); Urine Hyaline Cast FEW /lpf (0 - 2); Urine Mucus FEW (None Seen); Urine Protein, UAD TRACE (Negative); Urine Specific Gravity 1.022 (1.001-1.035); Urine Urobilinogen Normal (Negative); Urine WBC 3 /hpf (0 - 3); Urine pH 5.5 (5.0-8.0)
[2023-07-08] MEDS: VANCOMYCIN 1GM/250ML 250 ML IV SCH ×3 (03:00→19:00)
[2023-07-08 06:00] LABS: Basophils # (auto) 0.1 10 ^3/uL (0-0.2); Basophils % (auto) 0.7 % (0.0-2.0); Eosinophils # (auto) 0.4 10 ^3/uL (0-0.8); Eosinophils % (auto) 3.1 % (0.0-7.0); Hematocrit 42.8 % (41.0-53.0); Hemoglobin 14.2 g/dL (13.5-17.5); Lymphocytes # (auto) 2.6 10 ^3/uL (0.4-5.4); Lymphocytes % (auto) 22.3 % (10.0-50.0); Mean Corpuscular Hemoglobin 28.9 pg (28.0-32.0); Mean Corpuscular Hgb Conc. 33.2 g/dL (32.0-36.0); Mean Corpuscular Volume 87.2 fL (80.0-100.0); Monocytes # (auto) 1.2 10 ^3/uL (0-1.3); Monocytes % (auto) 10.6 % (0.0-12.0); Neutrophils # (auto) 7.4 10 ^3/uL (1.6-8.6); Neutrophils % (auto) 63.3 % (37.0-80.0); Nucleated Red Blood Cells % 0.1 %; Red Cell Distribution Width 13.8 % (11.8-14.3); White Blood Cell 11.8 10^3/uL (4.4-10.8)
[2023-07-08 06:17] LABS: Alanine Aminotransferase 15 U/L (7-40); Alkaline Phosphatase 58 U/L (46-116); BUN/Creatinine Ratio 15.8 (10.0-20.0); Blood Urea Nitrogen 16 mg/dL (9-23); Calcium 8.7 mg/dL (8.5-10.1); Chloride 106 mmol/L (98-107); Glucose 87 mg/dL (74-106); Potassium 3.5 mmol/L (3.5-5.1); Sodium 139 mmol/L (136-145)
[2023-07-08 06:18] LABS: Albumin 3.8 g/dL (3.2-4.8); Aspartate Aminotransferase 14 U/L (13-40); Bilirubin, Total 1.2 mg/dL (0.2-1.0); Total Protein 6.3 g/dL (5.7-8.2)
[2023-07-08 07:00] LABS: Anion Gap 9.1 (5-15); Carbon Dioxide 23.9 mmol/L (20-30)
[2023-07-08] MEDS: ENOXAPARIN SOD 100 MG/1 ML SYRINGE SC SCH ×2 (07:15→17:45)
[2023-07-08] MEDS: LEVOTHYROXINE SODIUM 50 MCG TAB PO SCH (07:34)
[2023-07-08 07:35] VITALS: RESP 16; O2SAT 94
[2023-07-08] MEDS: BENAZEPRIL HCL 10 MG TAB PO SCH (10:00)
[2023-07-08] MEDS: PANTOPRAZOLE 40 MG/10 ML VIAL INJ IV SCH (11:27)
[2023-07-08] MEDS: METOPROLOL TARTRATE 50 MG TAB PO SCH ×2 (11:40→22:52)
[2023-07-08] MEDS: amLODIPine BESYLATE 5 MG TAB PO SCH (11:41)
[2023-07-08 13:56] VITALS: PULSE 69; RESP 16; O2SAT 98
[2023-07-08 16:46] VITALS: BP 125/69; PULSE 70; RESP 18; TEMP 98.8; O2SAT 99
[2023-07-08 20:00] VITALS: PULSE 80; PULSE 91; RESP 17; O2SAT 95
[2023-07-08] MEDS ORDERED: VANCOMYCIN 1GM/250ML 250 ML IV SCH (20:00)
[2023-07-08 22:00] VITALS: BP 154/84; PULSE 17; RESP 91; TEMP 98.7; O2SAT 95
[2023-07-08] MEDS: ALLOPURINOL 100 MG TAB PO SCH (22:27)
[2023-07-09] VITALS (8 sets, daily range): BP systolic 127–138; BP diastolic 63–82; PULSE 64–101; RESP 15–22; TEMP 97.4–98.7; O2SAT 92–98
[2023-07-09] MEDS: VANCOMYCIN 1GM/250ML 250 ML IV SCH ×3 (02:38→20:30)
[2023-07-09] MEDS: ENOXAPARIN SOD 100 MG/1 ML SYRINGE SC SCH ×2 (05:45→18:14)
[2023-07-09] MEDS ORDERED: SUCCINYLCHOLINE CHLORIDE 20 MG/ML 10ML VIAL IV ONE (06:41)
[2023-07-09] MEDS ORDERED: ROCURONIUM 10MG/ML 10ML VIAL IV ONE (06:41)
[2023-07-09] MEDS ORDERED: PROPOFOL 10 MG/ML 20 ML IV ONE (06:46)
[2023-07-09] MEDS ORDERED: MIDAZOLAM HCL 2MG/2ML 2ml VIAL (1mg/ml) ONE (06:46)
[2023-07-09] MEDS ORDERED: fentaNYL CITRATE 100 MCG/2 ML VL ONE (06:46)
[2023-07-09] MEDS ORDERED: SODIUM CHLORIDE LOCK 10 ML ONE (06:46)
[2023-07-09] MEDS ORDERED: ONDANSETRON HCL 4 MG/2 ML VIAL ONE (06:46)
[2023-07-09] MEDS: LEVOTHYROXINE SODIUM 50 MCG TAB PO SCH (07:00)
[2023-07-09] MEDS ORDERED: ROPIVACAINE 0.5% (5MG/ML) 20ML AMPULE IJ ONE (07:14)
[2023-07-09] MEDS ORDERED: ceFAZolin 1GM VL ONE (07:14)
[2023-07-09] MEDS ORDERED: METOCLOPRAMIDE HCL 5MG/ml INJ 2ml VIAL IV PRN (07:15)
[2023-07-09] MEDS ORDERED: HYDROmorphone HCL 2 MG/ML VL/or syr IV PRN ×2 (07:15)
[2023-07-09] MEDS ORDERED: MORPHINE SULFATE INJ 2 MG/ml SYRG IV PRN (07:15)
[2023-07-09] MEDS ORDERED: ACCU-CHEK COMFORT CURVE STRIP VI ONE (07:15)
[2023-07-09] MEDS ORDERED: ceFAZolin 1GM/50ML 100 ML IV ONE (09:08)
[2023-07-09] MEDS: METOPROLOL TARTRATE 50 MG TAB PO SCH ×3 (10:00→22:25)
[2023-07-09] MEDS: BENAZEPRIL HCL 10 MG TAB PO SCH (10:00)
[2023-07-09] MEDS: PANTOPRAZOLE 40 MG/10 ML VIAL INJ IV SCH (11:37)
[2023-07-09] MEDS: amLODIPine BESYLATE 5 MG TAB PO SCH (11:47)
[2023-07-09 15:50] LABS: INR 1.03 (0.9-1.15); Prothrombin Time 10.8 sec (9.3-11.8)
[2023-07-09] MEDS ORDERED: LIDOCAINE 1% (LOCAL ANESTH.) PF 5ml SDV ID ONE (18:15)
[2023-07-09] MEDS ORDERED: hydrALAZINE HCL 20 MG/ML VL IV PRN (18:15)
[2023-07-09] MEDS: ALLOPURINOL 100 MG TAB PO SCH (21:46)
[2023-07-09] MEDS: SODIUM CHLOR 0.9% PF (SALINE LOCK) 10ML VIAL/SYR IV SCH (21:50)
[2023-07-10] MEDS: VANCOMYCIN 1GM/250ML 250 ML IV SCH ×3 (03:29→18:57)
[2023-07-10 05:00] VITALS: BP 118/91; PULSE 94; RESP 24; TEMP 97.8; O2SAT 91
[2023-07-10] MEDS: ENOXAPARIN SOD 100 MG/1 ML SYRINGE SC SCH ×2 (06:30→17:24)
[2023-07-10] MEDS: LEVOTHYROXINE SODIUM 50 MCG TAB PO SCH (06:31)
[2023-07-10 08:00] VITALS: BP 148/78; PULSE 76; PULSE 89; RESP 20; TEMP 98.8; O2SAT 97
[2023-07-10] MEDS: BENAZEPRIL HCL 10 MG TAB PO SCH (09:17)
[2023-07-10] MEDS: amLODIPine BESYLATE 5 MG TAB PO SCH (09:18)
[2023-07-10] MEDS: SODIUM CHLOR 0.9% PF (SALINE LOCK) 10ML VIAL/SYR IV SCH ×2 (09:18→22:49)
[2023-07-10] MEDS: METOPROLOL TARTRATE 50 MG TAB PO SCH ×2 (09:18→22:48)
[2023-07-10 12:00] VITALS: BP 108/75; PULSE 78; RESP 22; TEMP 98.7; O2SAT 98
[2023-07-10 16:00] VITALS: BP 127/84; PULSE 92; RESP 20; TEMP 98.5; O2SAT 97
[2023-07-10 20:00] VITALS: PULSE 70; PULSE 96; RESP 20; O2SAT 93
[2023-07-10 22:00] VITALS: BP 153/73; PULSE 70; RESP 20; TEMP 99; O2SAT 93
[2023-07-10] MEDS: ALLOPURINOL 100 MG TAB PO SCH (22:41)
[2023-07-11] VITALS (7 sets, daily range): BP systolic 123–147; BP diastolic 72–92; PULSE 83–101; RESP 19–20; TEMP 98.2–98.8; O2SAT 91–96
[2023-07-11] MEDS: VANCOMYCIN 1GM/250ML 250 ML IV SCH ×3 (03:43→18:05)
[2023-07-11] MEDS: ENOXAPARIN SOD 100 MG/1 ML SYRINGE SC SCH ×2 (07:04→18:05)
[2023-07-11] MEDS: LEVOTHYROXINE SODIUM 50 MCG TAB PO SCH (07:09)
[2023-07-11] MEDS: METOPROLOL TARTRATE 50 MG TAB PO SCH ×2 (08:56→22:12)
[2023-07-11] MEDS: amLODIPine BESYLATE 5 MG TAB PO SCH (08:56)
[2023-07-11] MEDS: BENAZEPRIL HCL 10 MG TAB PO SCH (08:57)
[2023-07-11] MEDS: SODIUM CHLOR 0.9% PF (SALINE LOCK) 10ML VIAL/SYR IV SCH ×2 (08:57→22:14)
[2023-07-11] MEDS ORDERED: cefTRIAXone 1GM/50ML D5W 50 ML IV ONE (09:15)
[2023-07-11] MEDS: ALLOPURINOL 100 MG TAB PO SCH (22:12)
[2023-07-12] VITALS (8 sets, daily range): BP systolic 134–167; BP diastolic 84–97; PULSE 64–99; RESP 14–20; TEMP 98.2–98.9; O2SAT 93–96
[2023-07-12] MEDS: LEVOTHYROXINE SODIUM 50 MCG TAB PO SCH (06:20)
[2023-07-12] MEDS: ENOXAPARIN SOD 100 MG/1 ML SYRINGE SC SCH ×2 (06:23→17:32)
[2023-07-12] MEDS: SODIUM CHLOR 0.9% PF (SALINE LOCK) 10ML VIAL/SYR IV SCH ×2 (09:00→21:35)
[2023-07-12] MEDS: cefTRIAXone 1GM/50ML D5W 50 ML IV SCH (09:00)
[2023-07-12] MEDS: METOPROLOL TARTRATE 50 MG TAB PO SCH ×2 (09:01→21:36)
[2023-07-12] MEDS: amLODIPine BESYLATE 5 MG TAB PO SCH (09:02)
[2023-07-12] MEDS: BENAZEPRIL HCL 10 MG TAB PO SCH (11:27)
[2023-07-12] MEDS: ALLOPURINOL 100 MG TAB PO SCH (21:36)
[2023-07-13] VITALS (7 sets, daily range): BP systolic 130–159; BP diastolic 80–95; PULSE 94–102; RESP 18–20; TEMP 98.1–98.7; O2SAT 92–95
[2023-07-13] MEDS: LEVOTHYROXINE SODIUM 50 MCG TAB PO SCH (06:04)
[2023-07-13] MEDS: ENOXAPARIN SOD 100 MG/1 ML SYRINGE SC SCH ×2 (06:07→17:30)
[2023-07-13] MEDS: cefTRIAXone 1GM/50ML D5W 50 ML IV SCH (08:52)
[2023-07-13] MEDS: SODIUM CHLOR 0.9% PF (SALINE LOCK) 10ML VIAL/SYR IV SCH ×2 (08:52→21:52)
[2023-07-13] MEDS: amLODIPine BESYLATE 5 MG TAB PO SCH (09:34)
[2023-07-13] MEDS: METOPROLOL TARTRATE 50 MG TAB PO SCH ×2 (09:35→21:51)
[2023-07-13 10:41] LABS: Anion Gap 5 (5-15); Carbon Dioxide 29 mmol/L (20-30); Chloride 105 mmol/L (98-107); Potassium 3.8 mmol/L (3.5-5.1); Sodium 139 mmol/L (136-145)
[2023-07-13 10:42] LABS: Calcium 8.9 mg/dL (8.7-10.4)
[2023-07-13 10:47] LABS: BUN/Creatinine Ratio 19.8 (10.0-20.0); Blood Urea Nitrogen 20 mg/dL (9-23); Glucose 103 mg/dL (74-106)
[2023-07-13] MEDS: BENAZEPRIL HCL 10 MG TAB PO SCH (13:17)
[2023-07-13] MEDS: VANCOMYCIN 1GM/250ML 250 ML IV SCH (17:30)
[2023-07-13] MEDS: ALLOPURINOL 100 MG TAB PO SCH (21:51)
[2023-07-14] MEDS: VANCOMYCIN 1GM/250ML 250 ML IV SCH (02:54)
[2023-07-14 05:36] VITALS: BP 151/85; PULSE 75; RESP 20; TEMP 98.6; O2SAT 94
[2023-07-14 05:39] VITALS: BP 147/88; O2SAT 92
[2023-07-14] MEDS: ENOXAPARIN SOD 100 MG/1 ML SYRINGE SC SCH (05:51)
[2023-07-14] MEDS: LEVOTHYROXINE SODIUM 50 MCG TAB PO SCH (05:53)
[2023-07-14 08:00] VITALS: PULSE 74; PULSE 82; RESP 16; O2SAT 96
[2023-07-14 09:00] VITALS: BP 142/92; PULSE 94; RESP 20; TEMP 98.1; O2SAT 99
[2023-07-14] MEDS: SODIUM CHLOR 0.9% PF (SALINE LOCK) 10ML VIAL/SYR IV SCH (10:22)
[2023-07-14] MEDS: cefTRIAXone 1GM/50ML D5W 50 ML IV SCH (10:22)
[2023-07-14] MEDS: METOPROLOL TARTRATE 50 MG TAB PO SCH (10:23)
[2023-07-14] MEDS: BENAZEPRIL HCL 10 MG TAB PO SCH (10:24)
[2023-07-14] MEDS: amLODIPine BESYLATE 5 MG TAB PO SCH (10:35)
[2023-07-14] MEDS ORDERED: APIX5TAB PO (11:55)
[2023-07-14 15:02] VITALS: BP 146/76; PULSE 70; TEMP 36.7
[2023-07-14] MEDS: AMPICILLIN & SULBACTAM SODIUM 3 GM in SODIUM CHL 0.9% 100 ML IV SCH ×2 (15:48→16:47)
[2023-07-14 16:37] VITALS: BP 153/93; PULSE 62; RESP 19; TEMP 98; O2SAT 98
[2023-07-14] MEDS ORDERED: APIXABAN 5 MG TAB PO SCH (22:00)
== END 2023-07-14 18:20 | disposition home health service (06) | DRG 516 ==
LOC: ER 11:56 → TELE 17:49 → TELE-EAST 07-08 13:16
PROVIDERS: ADMIT Nurse Practitioner Family; ATTEND Family Medicine
PROC: 05HC33Z Insertion of Infusion Device into Left Basilic Vein, Percutaneous Approach (ICD-10-PCS; 2023-07-09)
PROC: B54NZZA Ultrasonography of Left Upper Extremity Veins, Guidance (ICD-10-PCS; 2023-07-09)
PROC: 0QBR0ZZ Excision of Left Toe Phalanx, Open Approach (ICD-10-PCS; principal; 2023-07-09 09:28)
DX: M86.672 Other chronic osteomyelitis, left ankle and foot (principal); I82.611 Acute embolism and thrombosis of superficial veins of right upper extremity; L03.113 Cellulitis of right upper limb; N39.0 Urinary tract infection, site not specified; Z68.42 Body mass index [BMI] 45.0-49.9, adult; I82.B11 Acute embolism and thrombosis of right subclavian vein; I82.A11 Acute embolism and thrombosis of right axillary vein; L03.032 Cellulitis of left toe; D72.829 Elevated white blood cell count, unspecified; I10 Essential (primary) hypertension; I48.91 Unspecified atrial fibrillation; E03.9 Hypothyroidism, unspecified; L97.529 Non-pressure chronic ulcer of other part of left foot with unspecified severity; M10.9 Gout, unspecified; Z80.0 Family history of malignant neoplasm of digestive organs; Z80.1 Family history of malignant neoplasm of trachea, bronchus and lung; Z82.49 Family history of ischemic heart disease and other diseases of the circulatory system; E66.01 Morbid (severe) obesity due to excess calories
CPT/HCPCS: 36415; 36569; 71045; 73200; 73718; 80048; 80053; 80202; 81001; 84484; 85007; 85025; 85027; 85610; 85730; 87040; 87070; 87075; 87205; 93971; 96365; 96366; C9113; G0378; J0330; J0690; J0696; J2250; J2405; J2543; J2704; J7060